=== PATIENT | female | born 1960 | race Caucasian/White ===

== ENCOUNTER 2018-02-06 08:10 | Outpatient (CLI) | payer BC ==
--- NOTE | 2018-02-06 09:31 | RAD ---
2 VIEWS CHEST: Date: 02/06/18 COMPARISON: 10/26/16. HISTORY: Dyspnea. FINDINGS: Two views of the chest show normal sized cardiomediastinal silhouette. There is no evidence of consol idation, mass, or pleural effusion. The bones are unremarkable. IMPRESSION: No evidence of acute cardiopulmonary disease. POS: [facility]
== END 2018-02-06 08:11 | disposition home or self-care (01) ==
LOC: RAD 08:10
PROVIDERS: ATTEND Internal Medicine Critical Care Medicine
DX: R06.00 Dyspnea, unspecified (principal)
CPT/HCPCS: 71046

== ENCOUNTER 2018-03-15 08:37 | Outpatient (CLI) | payer BC ==
--- NOTE | 2018-03-15 09:55 | CT ---
CT CHEST WITHOUT CONTRAST PULMONARY LUNG SCREENING: COMPARISON: Radiograph of 02/06/18. HISTORY: Z72.0, tobacco use. FINDINGS: Lung screening specific (lung vascular): There is a single nodule in the left lung base with an average diameter of 7 mm. There are small sca ttered micronodules. No other nodules are suspicious per lung RADS criteria. Potentially significant incidentals (lung-RADS category S): None. Pulmonary incidentals: There is mild respiratory bronchiolitis. There is a round atelectasis left on the basis of adjacent pleural thickening series 3, image 48. Other incidentals: None. IMPRESSION: 1. Lung RADS category 3: probably benign. Single 7 mm nodule left lung base. Recommend a 6-month followup low-dose CT. 2. Lung RADS category S: No potentially significant incidental findings requiring urgent additional evaluation. POS: [facility]
== END 2018-03-15 08:38 | disposition home or self-care (01) ==
LOC: CT 08:37
PROVIDERS: ATTEND Internal Medicine Critical Care Medicine
DX: Z72.0 Tobacco use (principal)
CPT/HCPCS: G0297

== ENCOUNTER 2018-09-19 09:22 | Outpatient (CLI) | payer BC ==
--- NOTE | 2018-09-19 12:05 | CT ---
CT OF CHEST PERFORMED WITHOUT CONTRAST ENHANCEMENT: Comparison: 03-15-18 History: Follow up of left lobe thyroid nodule. FINDINGS: The lungs are clear of any infiltrative process. The 7 mm subpleural nodule seen along the left hemid iaphragm on the prior examination is difficult to even visualize on this study although I believe it is on Axial image 111 and Coronal image 42. There is a tiny 1-2 mm residual pleural based area of sca rring. No new nodules are identified. No significant mediastinal or hilar adenopathy. The visualized liver parenchyma shows no focal findings. Right and left adrenal glands are normal. IMPRESSION: The 7 mm left lower lobe pulmonary nodule is almost completely disappeared. Some minimal pleural base d parenchymal change in this area probably represents some residual scar. POS: [facility]
== END 2018-09-19 09:23 | disposition home or self-care (01) ==
LOC: BICCT 09:22
PROVIDERS: ATTEND Internal Medicine Critical Care Medicine
DX: R91.1 Solitary pulmonary nodule (principal)
CPT/HCPCS: 71250

== ENCOUNTER 2019-09-15 10:24 | Outpatient (CLI) | payer BC ==
--- NOTE | 2019-09-15 11:37 | CT ---
EXAM: CT chest without contrast per low-dose cancer screening protocol HISTORY: History of smoking and nicotine dependence COMPARISON : 03/15/2018 TECHNIQUE: Multiple contiguous axial images were obtained in a CT of the chest without contrast per l ow-dose cancer screening protocol. Sagittal and coronal reformats were performed. FINDINGS: Pulmonary nodules: No suspicious pulmonary nodules are seen. The nodularity seen just above the left hemidiaphragm on the prior exam is not seen on today's examination and likely represented atelectasis. No focal infiltrates are seen. Pleural space: No pneumothorax or pleural effusion are seen. Heart: The heart is normal in size. Mediastinum: No hilar or mediastinal lymphadenopathy appreciated on this limited noncontrast examinat ion. Bones: Unremarkable. Visualized subdiaphragmatic structures: Unremarkable. IMPRESSION: Lung RADS category 1-negative.
== END 2019-09-15 10:25 | disposition home or self-care (01) ==
LOC: CT 10:24
PROVIDERS: ATTEND Internal Medicine Critical Care Medicine
DX: R91.1 Solitary pulmonary nodule (principal)
CPT/HCPCS: G0297

== ENCOUNTER 2023-09-06 09:17 | Outpatient (CLI) | payer BC | END 2023-09-06 09:18 | disposition home or self-care (01) | LOC: RAD 09:17 | PROVIDERS: ATTEND Internal Medicine Critical Care Medicine | DX: R06.00 Dyspnea, unspecified (principal) | CPT/HCPCS: 71046 ==